=== PATIENT | male | born 1965 | race African-American/Black ===

== ENCOUNTER 2018-03-09 02:19 | Emergency (ER) | payer MEDICAID ==
[~2018-03-09] VITALS: Ht 182.9 cm; Wt 100.0 kg
[2018-03-09] MEDS ORDERED: KETOROLAC 60MG/2ML VIAL IM STA (04:01)
[2018-03-09 06:13] VITALS: BP 126/80
== END 2018-03-09 06:58 | disposition home or self-care (01) ==
LOC: ER 02:42
DX: M25.561 Pain in right knee (principal); I10 Essential (primary) hypertension; V13.4XXA Pedal cycle driver injured in collision with car, pick-up truck or van in traffic accident, initial encounter; Y93.89 Activity, other specified; Y92.488 Other paved roadways as the place of occurrence of the external cause
CPT/HCPCS: 73562; 96372; 99284; J1885; Z7610

== ENCOUNTER 2018-06-21 05:31 | Emergency (ER) | payer OTHER, MEDICAID ==
[~2018-06-21] VITALS: Ht 177.8 cm; Wt 98.0 kg
[2018-06-21 06:07] VITALS: BP 144/88
[2018-06-21] MEDS ORDERED: ONDANSETRON HCL 4MG/2ML INJ IV STA (06:17)
[2018-06-21] MEDS ORDERED: MORPHINE SULFATE 4 MG/ML CPJ (NOT FOR IM USE) IV STA (06:17)
[2018-06-21] MEDS ORDERED: ASPIRIN 81MG TABLET PO ONE (06:30)
[2018-06-21] MEDS ORDERED: NITROGLYCERIN OINT 1GM/INCH UDPKT TD ONE (06:30)
== END 2018-06-21 07:21 | disposition left against medical advice (07) ==
LOC: ER 05:31 → CANBEDREQ 09:20
DX: R07.89 Other chest pain (principal); R51 Headache; I10 Essential (primary) hypertension; H53.8 Other visual disturbances; F17.200 Nicotine dependence, unspecified, uncomplicated; Z87.442 Personal history of urinary calculi
CPT/HCPCS: 71045; 93005; 99284

== ENCOUNTER 2019-02-06 16:48 | Emergency (ER) | payer OTHER, MEDICAID ==
[~2019-02-06] VITALS: Ht 170.2 cm; Wt 85.0 kg
[2019-02-06 18:05] VITALS: BP 152/80
== END 2019-02-06 18:38 | disposition home or self-care (01) ==
LOC: ER 16:48
DX: M79.10 Myalgia, unspecified site (principal); I10 Essential (primary) hypertension; F43.10 Post-traumatic stress disorder, unspecified; F12.10 Cannabis abuse, uncomplicated; F17.210 Nicotine dependence, cigarettes, uncomplicated; Y04.0XXA Assault by unarmed brawl or fight, initial encounter
CPT/HCPCS: 99283

== ENCOUNTER 2019-02-28 22:14 | Emergency (ER) | payer MEDICAID, OTHER ==
[~2019-02-28] VITALS: Ht 182.9 cm; Wt 98.0 kg
[2019-02-28] MEDS ORDERED: PROCHLORPERAZINE MALEATE 10MG TABLET PO ONE (22:45)
[2019-02-28] MEDS ORDERED: DIPHENHYDRAMINE 25MG CAPSULE PO ONE (22:45)
[2019-02-28] MEDS ORDERED: KETOROLAC 30MG/ML VIAL IV ONE (22:45)
[2019-02-28] MEDS ORDERED: SODIUM CHLORIDE 0.9% 1,000 ML IV ONE (22:45)
[2019-02-28] MEDS ORDERED: AMLODIPINE 10MG TABLET PO ONE (23:15)
[2019-03-01 01:16] VITALS: BP 148/88
== END 2019-03-01 01:18 | disposition home or self-care (01) ==
LOC: ER 22:14
DX: G43.909 Migraine, unspecified, not intractable, without status migrainosus (principal); I10 Essential (primary) hypertension
CPT/HCPCS: 96374; 99284; J1885; J7030; Q0163; Q0164; Z7610

== ENCOUNTER 2019-04-01 14:10 | Inpatient (IN) | payer MEDICAID ==
[~2019-04-01] VITALS: Ht 167.6 cm; Wt 97.1 kg
[2019-04-01] MEDS ORDERED: KETOROLAC 30MG/ML VIAL IV STA (14:37)
[2019-04-01] MEDS ORDERED: ONDANSETRON HCL 4MG/2ML INJ IV STA (14:37)
[2019-04-01] MEDS ORDERED: MORPHINE SULFATE 4 MG/ML CPJ (NOT FOR IM USE) IV STA (14:37)
[2019-04-01] MEDS ORDERED: SODIUM CHLORIDE 0.9% 1,000 ML IV ONE (14:37)
[2019-04-01] MEDS ORDERED: HYDRALAZINE 20MG/ML VIAL IV ONE (14:45)
[2019-04-01 14:48] LABS: BASOPHILS % 0.8 % (0.0-2.0); HEMATOCRIT. 36.9 % (42.0-52.0); HEMOGLOBIN. 12.1 g/dL (14.0-18.0); LYMPHOCYTES % 17.9 % (20.0-50.0); MEAN CORPUSCULAR HEMOGLOBIN 25.7 pg (28.0-32.0); MEAN CORPUSCULAR VOLUME 78.8 fL (80.0-94.0); MEAN PLATELET VOLUME 9.7 fl (7.4-10.4); NEUTROPHILS % 68.3 % (40.0-76.0); PLATELET 250 x1000/uL (130-400); RED BLOOD CELL COUNT 4.69 mill/uL (4.7-6.1); RED CELL DISTRIBUTION WIDTH 14.9 % (11.6-14.6)
[2019-04-01 14:58] LABS: PROTHROMBIN TIME 10.3 sec (9.6-11.0)
[2019-04-01 15:00] LABS: CHLORIDE 111 mEq/L (98-107)
[2019-04-01] MEDS ORDERED: CLONIDINE 0.2MG TABLET PO ONE (16:00)
[2019-04-01 22:00] VITALS: BP 143/92
[2019-04-01] MEDS ORDERED: AMLO10TA80 MT (23:01)
[2019-04-01] MEDS ORDERED: SUMA25TA9 MT (23:01)
[2019-04-02] MEDS ORDERED: SUMATRIPTAN SUCCINATE 6MG/0.5ML VIAL SUBCUT NR (01:00)
[2019-04-02] MEDS: LOSARTAN POTASSIUM 50 MG TABLET PO SCH ×3 (01:14→09:00)
[2019-04-02 04:00] VITALS: BP 158/90
[2019-04-02 06:00] VITALS: BP 165/106
[2019-04-02] MEDS: HYDRALAZINE 20MG/ML VIAL IV PRN ×2 (06:55→20:40)
[2019-04-02] MEDS: AMLODIPINE 10MG TABLET PO SCH (08:20)
[2019-04-02] MEDS: MORPHINE SULFATE 2 MG/ML CPJ (NOT FOR IM USE) IV PRN ×3 (08:20→20:52)
[2019-04-02 10:40] LABS: BASOPHILS % 0.4 % (0.0-2.0); EOSINOPHILS % 4.8 % (0.0-5.0); HEMATOCRIT. 37.8 % (42.0-52.0); HEMOGLOBIN. 12.4 g/dL (14.0-18.0); MEAN CORPUSCULAR HEMOGLOBIN 25.6 pg (28.0-32.0); MEAN CORPUSCULAR VOLUME 78.3 fL (80.0-94.0); MEAN PLATELET VOLUME 9.9 fl (7.4-10.4); MONOCYTES % 5.6 % (2.0-8.0); NEUTROPHILS % 70.2 % (40.0-76.0); PLATELET 250 x1000/uL (130-400); RED BLOOD CELL COUNT 4.82 mill/uL (4.7-6.1); RED CELL DISTRIBUTION WIDTH 14.6 % (11.6-14.6)
[2019-04-02 10:50] LABS: CHLORIDE 113 mEq/L (98-107)
[2019-04-02 12:00] VITALS: BP 139/59
[2019-04-02 16:00] VITALS: BP 155/79
[2019-04-02 20:00] VITALS: BP 169/105
[2019-04-02] MEDS ORDERED: ONDANSETRON HCL 4MG/2ML INJ IV PRN (22:30)
[2019-04-03] MEDS: MORPHINE SULFATE 2 MG/ML CPJ (NOT FOR IM USE) IV PRN ×5 (02:28→22:51)
[2019-04-03 08:00] VITALS: BP 183/116
[2019-04-03] MEDS: AMLODIPINE 10MG TABLET PO SCH (08:20)
[2019-04-03] MEDS: HYDRALAZINE 20MG/ML VIAL IV PRN (11:21)
[2019-04-03 12:00] VITALS: BP 165/92
[2019-04-03] MEDS: CLONIDINE 0.1MG TABLET PO SCH ×2 (14:00→21:16)
[2019-04-03] MEDS ORDERED: ACETAMINOPHEN 325MG TABLET PO PRN (14:15)
[2019-04-03 16:00] VITALS: BP 155/98
[2019-04-03] MEDS: LOSARTAN POTASSIUM 50 MG TABLET PO SCH (16:32)
[2019-04-03] MEDS: HYDRALAZINE HCL 100MG TABLET PO SCH ×2 (16:32→21:13)
[2019-04-03 20:00] VITALS: BP 142/83
[2019-04-03] MEDS ORDERED: AMITRIPTYLINE 25MG TABLET PO SCH (21:00)
[2019-04-03 23:30] VITALS: BP 138/79
[2019-04-04] MEDS: LOSARTAN POTASSIUM 50 MG TABLET PO SCH ×2 (00:04→08:12)
[2019-04-04 04:00] VITALS: BP 125/77
[2019-04-04] MEDS: CLONIDINE 0.1MG TABLET PO SCH ×2 (05:52→13:39)
[2019-04-04 07:45] VITALS: BP 166/105
[2019-04-04] MEDS: HYDRALAZINE HCL 100MG TABLET PO SCH (08:12)
[2019-04-04] MEDS: MORPHINE SULFATE 2 MG/ML CPJ (NOT FOR IM USE) IV PRN ×3 (08:12→13:55)
[2019-04-04] MEDS: AMLODIPINE 10MG TABLET PO SCH (08:12)
[2019-04-04 12:00] VITALS: BP 132/74
[2019-04-04] MEDS ORDERED: HYDRALAZINE HCL 100MG TABLET PO SCH (14:00)
[2019-04-04 16:00] VITALS: BP 138/81
[2019-04-04 16:35] VITALS: BP 138/81
== END 2019-04-04 17:01 | disposition home or self-care (01) | DRG 199 ==
LOC: ER 14:10 → EDBEDREQ 18:16 → 8WST 18:23 → ENRESERV 21:06
PROVIDERS: ADMIT Internal Medicine; ATTEND Internal Medicine
DX: I16.0 Hypertensive urgency (principal); I27.20 Pulmonary hypertension, unspecified; G45.9 Transient cerebral ischemic attack, unspecified; E44.1 Mild protein-calorie malnutrition; M48.02 Spinal stenosis, cervical region; I10 Essential (primary) hypertension; E87.6 Hypokalemia; F12.90 Cannabis use, unspecified, uncomplicated; F17.210 Nicotine dependence, cigarettes, uncomplicated; G43.909 Migraine, unspecified, not intractable, without status migrainosus; D64.9 Anemia, unspecified; Z91.19 Patient's noncompliance with other medical treatment and regimen; Z80.0 Family history of malignant neoplasm of digestive organs; Z71.6 Tobacco abuse counseling; Z68.34 Body mass index [BMI] 34.0-34.9, adult
CPT/HCPCS: 36415; 70551; 71045; 72141; 80048; 80061; 83880; 84443; 84484; 93005; 93306; 99285; J0360; J1885; J2270; J2405; J3030; J7030

== ENCOUNTER 2021-12-21 22:25 | Emergency (ER) | payer MEDICAID ==
[~2021-12-21] VITALS: Ht 185.4 cm; Wt 95.0 kg
[~2021-12-21 22:25] MED LIST: AMLO10TA80 MT; SUMA25TA9 MT
[2021-12-21] MEDS ORDERED: NITROGLYCERIN 0.4MG TABLET SL SL PRN (23:00)
[2021-12-21] MEDS ORDERED: LOSARTAN POTASSIUM 50 MG TABLET PO ONE (23:00)
[2021-12-21] MEDS ORDERED: AMLODIPINE 10MG TABLET PO ONE (23:00)
[2021-12-21] MEDS ORDERED: ASPIRIN 81MG TABLET PO ONE (23:00)
[2021-12-22] MEDS ORDERED: ASPIRIN 81MG TABLET PO NR (00:42)
[2021-12-22] MEDS ORDERED: AMLODIPINE 10MG TABLET PO NR (00:45)
[2021-12-22] MEDS ORDERED: LOSARTAN POTASSIUM 50 MG TABLET PO NR (00:45)
[2021-12-22 01:29] LABS: BASOPHILS % 0.4 % (0.0-2.0); EOSINOPHILS % 1.9 % (0.0-5.0); HEMATOCRIT. 38.9 % (42.0-52.0); HEMOGLOBIN. 12.2 g/dL (14.0-18.0); LYMPHOCYTES % 11.9 % (20.0-50.0); MEAN CORPUSCULAR HEMOGLOBIN 23.8 pg (28.0-32.0); MEAN CORPUSCULAR VOLUME 75.8 fL (80.0-94.0); MONOCYTES % 4.2 % (2.0-8.0); NEUTROPHILS % 81.6 % (40.0-76.0); PLATELET 312 x1000/uL (130-400); RED BLOOD CELL COUNT 5.13 mill/uL (4.7-6.1); RED CELL DISTRIBUTION WIDTH 16.2 % (11.6-14.6)
[2021-12-22 01:38] LABS: CHLORIDE 108 mEq/L (98-107)
[2021-12-22 04:30] VITALS: BP 169/58
== END 2021-12-22 04:42 ==
LOC: ER 22:25
DX: I16.0 Hypertensive urgency (principal); R07.89 Other chest pain; G43.909 Migraine, unspecified, not intractable, without status migrainosus; F17.210 Nicotine dependence, cigarettes, uncomplicated; Z87.442 Personal history of urinary calculi
CPT/HCPCS: 36415; 71045; 80053; 83880; 84484; 85025; 93005; 99285; Z7610